=== PATIENT | female | born 1980 | race Caucasian/White ===

== ENCOUNTER 2024-04-02 15:03 | Emergency (ER) | payer OTHER ==
[~2024-04-02] VITALS: Ht 162.6 cm; Wt 148.8 kg
[~2024-04-02 15:03] MED LIST: ADIPEX-P37.5 M1 PO; METFORMIN HCL500 M1 PO; QVAR7.3 G1 INH; VENTOLIN HFA18 GM INH; VITAMIN D50000 UNI1 PO; ZYRTEC10 MG PO
[2024-04-02] MEDS ORDERED: LISINOPRIL2.5 MG PO (15:20)
[2024-04-02] MEDS ORDERED: ARIPIPRAZOLE5 MG PO (15:20)
[2024-04-02] MEDS ORDERED: ESCITALOPRAM OX20 MG PO (15:21)
[2024-04-02] MEDS ORDERED: PRAZOSIN HCL1 MG PO (15:21)
[2024-04-02] MEDS ORDERED: OMEPRAZOLE20 MG PO (15:21)
[2024-04-02 16:46] VITALS: BP 121/83
== END 2024-04-02 16:47 | disposition home or self-care (01) ==
LOC: ED 15:03
DX: M79.672 Pain in left foot (principal); E11.9 Type 2 diabetes mellitus without complications; J45.909 Unspecified asthma, uncomplicated; Z79.899 Other long term (current) drug therapy
CPT/HCPCS: 73630; 99283